=== PATIENT | female | born 1965 | race Caucasian/White ===

== ENCOUNTER 2018-02-07 13:53 | Emergency (ER) | payer OTHER ==
[2018-02-07 14:11] VITALS: BP 130/82; PULSE 88; RESP 20; TEMP 98.4
--- NOTE | 2018-02-07 14:53 | ED ---
Upper Extremity HPI - General Chief Complaint: Extremity Injury, Upper Stated Complaint: shoulder injury-[facility] Time Seen by Provider: 02/07/18 14:43 Source: patient, RN notes reviewed Mode of arrival: ambulatory Limitations: no limitations - History of Present Illness Initial Comments: This is a 52-year-old female who presents to the emergency department with chief complaint of work-related left shoulder injury. 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 She states that her left arm was behind the patient and she was pulling the patient towards her. She states that she felt a pop and sharp, excruciating pain in her left shoulder that shot down her arm. She states that she has limited range of motion due to pain. She denies any other injuries or trauma. Denies any numbness or tingling. Denies recent fevers or chills, chest pain or shortness of breath, abdominal pain, nausea or vomiting. - Related Data Home Medications Medication Instructions Recorded Confirmed No Known Home Medications 02/07/18 02/07/18 Allergies Allergy/AdvReac Type Severity Reaction Status Date / Time NSAIDS (Non-Steroidal AdvReac BLEEDING Verified 02/07/18 14:50 Anti-Inflamma Review of Systems ROS Statement: Those systems with pertinent positive or pertinent negative responses have been documented in the HPI. ROS Other: All systems not noted in ROS Statement are negative. Past Medical History Additional Past Medical History / Comment(s): Von willebrand History of Any Multi-Drug Resistant Organisms: None Reported Past Surgical History: Tonsillectomy Past Psychological History: No Psychological Hx Reported Smoking Status: Never smoker Past Alcohol Use History: None Reported Past Drug Use History: None Reported General Exam - General Exam Comments Initial Comments: General: Awake and alert, well-developed; in no apparent distress. HEENT: Head atraumatic, normocephalic. Pupils are equal, round and reactive to light. Extraocular movements intact. Oropharynx moist without erythema or exudate. Neck: Supple. Normal ROM. Cardiovascular: Regular rate and rhythm. No murmurs, rubs or gallops. Chest symmetrical. Respiratory: Lungs clear to auscultation bilaterally. No wheezes, rales or rhonchi. Normal respiratory effort with no use of accessory muscles. Abdomen: Soft, non-tender, non-distended. No rigidity, rebound or guarding. Normal bowel sounds in all 4 quadrants. Musculoskeletal: Patient refuses to move the left shoulder; limited due to the pain. There is tenderness of the proximal humerus and AC joint. Sensation is intact. Radial pulses are 2+, equal and palpable bilaterally. Skin: [place], warm and dry without rashes or lesions. Neurological: Alert and oriented x3. CN II-XII grossly intact. Speech is fluent and answers are appropriate. No focal neuro deficits. Psychiatric: Normal mood and affect. No overt signs of depression or anxiety noted. Limitations: no limitations Course Vital Signs 02/07/18 14:09 Temperature 98.4 F Pulse Rate 88 Respiratory 20 Rate Blood Pressure 130/82 O2 Sat by Pulse 98 Oximetry Medical Decision Making - Medical Decision Making This is a 52-year-old female who presents to the emergency department with chief complaint of work-related left shoulder injury. Patient refuses to move the left arm for evaluation as she complains of severe pain. I am able to passively move the shoulder with resistance from patient. X-ray of the left shoulder was obtained which revealed no acute abnormalities. Patient is neurovascularly intact. It is recommended that she follow-up with orthopedics for further evaluation and work status is to be determined by them. Patient will be provided with contact information to follow-up with orthopedics. Vitals are stable and she is in no acute distress. Recommend rest, ice, elevation and ibuprofen or Tylenol as needed. Recommended gentle movement of the shoulder to prevent frozen shoulder. Patient will be discharged home at this time. She is in agreement and voices understanding. All questions were answered. - Radiology Data Radiology results: report reviewed X-ray of left shoulder impression: Normal shoulder. As read by Dr. Limon Disposition Clinical Impression: Strain of shoulder Disposition: HOME SELF-CARE Condition: Good Instructions: Rotator Cuff Injury (ED), Shoulder Sprain (ED) Additional Instructions: Please follow-up with orthopedics within 1-2 days for further evaluation. Please rest, ice, take ibuprofen or Tylenol as needed for pain. Please perform gentle motions of the shoulder to prevent frozen shoulder. Please follow up with primary care provider within 1-2 days. Return to emergency department if symptoms should worsen or any concerns arise. Is patient prescribed a controlled substance at d/c from ED?: No Referrals: Leslie Adams DO [Primary Care Provider] - 1-2 days Time of Disposition: 15:14
--- NOTE | 2018-02-07 15:02 | XR ---
EXAMINATION TYPE: XR shoulder complete LT DATE OF EXAM: 02/07/2018 COMPARISON: NONE HISTORY: Pain TECHNIQUE: Shoulder examined in 3 FINDINGS: The humeral head articulates with the glenoid. The acromio-clavicular junction is normal. No acute fractures or dislocations are evident. A follow up study can be performed 7-10 days from acute trauma for continued pain. IMPRESSION: 1. Normal Shoulder
== END 2018-02-07 15:31 | disposition home or self-care (01) ==
LOC: EC 13:53
DX: S46.912A Strain of unspecified muscle, fascia and tendon at shoulder and upper arm level, left arm, initial encounter (principal); Z88.6 Allergy status to analgesic agent; X50.9XXA Other and unspecified overexertion or strenuous movements or postures, initial encounter; Y93.89 Activity, other specified; Y92.69 Other specified industrial and construction area as the place of occurrence of the external cause; Y99.0 Civilian activity done for income or pay
CPT/HCPCS: 99283

== ENCOUNTER → 2018-03-03 | Outpatient (CLI) | payer OTHER ==
--- NOTE | 2018-03-03 12:45 | XR ---
EXAMINATION TYPE: XR shoulder complete LT DATE OF EXAM: 03/03/2018 CLINICAL HISTORY: pain COMPARISON: NONE TECHNIQUE: Three views of the left shoulder are obtained. FINDINGS: There is no acute fracture/dislocation evident. The acromioclavicular and glenohumeral rc int spaces appear within normal limits. The visualized ribs are intact and unremarkable. IMPRESSION: 1. There is no acute fracture or dislocation. ICD 10 NO FRACTURE, INITIAL EVALUATION
== END | disposition home or self-care (01) ==
LOC: RADXRMAIN 12:25
PROVIDERS: ATTEND Emergency Medicine
DX: S43.402D Unspecified sprain of left shoulder joint, subsequent encounter (principal)

== ENCOUNTER → 2018-03-08 | Outpatient (CLI) | payer OTHER ==
--- NOTE | 2018-03-08 13:16 | MR ---
EXAMINATION TYPE: MR shoulder LT wo con DATE OF EXAM: 03/08/2018 COMPARISON: Left shoulder radiographs dated 03/03/2018 HISTORY: Left shoulder pain TECHNIQUE: Multiplanar, multisequence imaging of the left shoulder is performed without contrast. FINDINGS: Rotator Cuff: There is a partial thickness small articular surface distal fiber tear of the supraspin atus. There is bursal surface fiber fraying and mild supraspinatus tendinosis as there is alteration of the intrinsic signal of the supraspinatus. There is bursal surface fraying of the fibers of the infraspinatus and mild tendinosis with increased signal of the distal tendon. The teres minor and subscapularis are normal muscular volume and signal. Acromioclavicular Joint: There is mild acromio clavicular arthropathy with capsular hypertrophy and s mall marginal osteophytes. No impingement on the supraspinatus is seen. Glenohumeral Joint: Multiple subchondral cysts are seen of the humeral head. Only mild joint space na rrowing of the glenohumeral joint is appreciated. Labrum: There is a small para labral cyst of the anterior superior labrum measuring 2 mm. There appea rs to be a nondisplaced anterior superior labral tear and anterior inferior labral tear. Labral degen eration is seen of the anterior inferior labrum. Biceps Tendon: The long head of biceps is in normal location within bicipital groove. There is a spli t tear of the intra-articular portion of the biceps tendon proximal to its attachment on the biceps a nchor. Extra-articular portion appears unremarkable. Bone marrow signal: No focal abnormal marrow signal is appreciated. IMPRESSION: 1. Split tear of the long head of the biceps tendon in its intra-articular portion without detachment . 2. Anterior superior and anterior inferior labral tears that appear nondisplaced with an associated 2 mm para labral cyst. Anterior inferior labral degeneration is also noted. 3. Subcentimeter partial-thickness articular surface tear of the distal fibers of the supraspinatus. 4. Mild glenohumeral arthropathy and acromio clavicular arthropathy. 5. Mild supraspinatus and infraspinatus tendinopathy.
== END | disposition home or self-care (01) ==
LOC: RADMRIMAIN 08:35
PROVIDERS: ATTEND Emergency Medicine
DX: S46.112A Strain of muscle, fascia and tendon of long head of biceps, left arm, initial encounter (principal); S46.012A Strain of muscle(s) and tendon(s) of the rotator cuff of left shoulder, initial encounter; S43.432A Superior glenoid labrum lesion of left shoulder, initial encounter; M24.112 Other articular cartilage disorders, left shoulder; M12.812 Other specific arthropathies, not elsewhere classified, left shoulder

== ENCOUNTER 2018-03-24 09:36 | Day surgery (SDC) | payer OTHER ==
[2018-03-17 12:01] VITALS: BMI 23.6
--- NOTE | 2018-03-23 19:42 | HP ---
HISTORY AND PHYSICAL CHIEF COMPLAINT: Left shoulder pain. HISTORY OF PRESENT ILLNESS: The patient is a 53-year-old right-hand dominant female who presents with left shoulder pain after an injury at work on 02/07/2018. 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 She has had pain with overhead use and at night ever since. She notes increasing stiffness. She has been to the emergency room and [facility] for this. She has been taking Tylenol and oxycodone for this. She did give this a period of rest without much relief. She denies previous problems with her left shoulder. PAST MEDICAL HISTORY: Otherwise negative. PAST SURGICAL HISTORY: Negative. CURRENT MEDICATIONS: [place] and oxycodone. ALLERGIES: She denies drug allergies. FAMILY HISTORY: Significant for cancer. SOCIAL HISTORY: Negative for current tobacco or alcohol use. REVIEW OF SYSTEMS: Sixteen point review of systems otherwise reviewed and is noncontributory. PHYSICAL EXAMINATION: On examination, the patient is approximately 5 foot 2 inches, 128 pounds of mesomorphic habitus. HEENT exam is nonfocal. Neck is supple. On examination of her left shoulder, she is tender about the anterior subacromial space and over the acromioclavicular joint. She has moderate subacromial crepitus. Active range of motion forward elevation 95 degrees, external rotation with the arm side 30 degrees, internal rotation to L4. Passively I am able to forward elevate her to 95 degrees. Motor strength is 4+ over 5 for abduction and external rotation with the arm at the side. Impingement test, Neer test, and Speed tests are positive. Her distal neurovascular exam otherwise appears intact in the left upper extremity. X-rays of the left shoulder obtained in the office show a type 2 acromion with maintained humeral head to acromial distance. MRI report left shoulder 03/08/2018 shows a possible partial-thickness tear of the supraspinatus along with a split tear involving the intra-articular portion of the long head of the biceps. IMPRESSION: 1. Left shoulder impingement with possible partial-thickness rotator cuff tear and possible partial tear of the long head of the biceps. 2. Left shoulder adhesive capsulitis. RECOMMENDATIONS: I talked to the patient at length regarding her condition and treatment options. At this point, she is having significant pain and limitation after this acute injury. After thorough discussion, she opts to proceed with surgery. We will plan to proceed with arthroscopic subacromial decompression and possible rotator cuff debridement versus repair. We will also consider biceps tenotomy. We will perform manipulation under anesthesia if necessary as well. Risks and benefits were discussed at length in layman's terms. We will likely perform that as an outpatient procedure. MMGABEL / SEEN: [id number] /
[~2018-03-24 09:36] MED LIST: DEXAMETHASONE SOD PHOSPHATE 10 MG/ML 1 ML VIAL IV ONE; HYDROmorphone 1 MG/ML 1 ML SYRINGE IVP PRN; LACTATED RINGERS 1,000 ML IV SCH; MIDAZOLAM 2 MG/2 ML VIAL IV PRN; ONDANSETRON 4 MG/2 ML VIAL IVP ONE; SCOPOLAMINE 1.5MG/72HR PATCH TRANSDERM ONE; ceFAZolin 1,000 MG in DEXTROSE/WATER 1 50ML.BAG IVPB ONE
[2018-03-24] MEDS ORDERED: LACTATED RINGERS 1,000 ML IV ONE (10:15)
[2018-03-24] MEDS ORDERED: LIDOCAINE 1% 20 ML VIAL (10MG/ML) FOR IV START INTRADERMA ONE (10:15)
[2018-03-24] MEDS ORDERED: PROPOFOL 10 MG/ML 20 ML VIAL IV ONE (11:08)
[2018-03-24] MEDS ORDERED: LIDOCAINE 1% INJ 10MG/ML (20 ML MDV) ONE (11:08)
[2018-03-24] MEDS ORDERED: ROPIVACAINE 5 MG/ML 30 ML VIAL ONE (11:08)
[2018-03-24] MEDS ORDERED: PHENYLEPHRINE-0.9% NACL SYG 1 MG/10 ML SYRINGE ONE (11:08)
[2018-03-24] MEDS ORDERED: MIDAZOLAM 2 MG/2 ML VIAL ONE (11:08)
[2018-03-24] MEDS ORDERED: SUCCINYLCHOLINE CHLORIDE 100 MG/5 ML SYR IV ONE (11:08)
[2018-03-24] MEDS ORDERED: EPINEPHrine (PF) 1 ML in SODIUM CHLORIDE 0.9% IRRIGATIO 3,000 ML IRRIGATION ONE ×8 (11:55)
--- NOTE | 2018-03-24 12:33 | P.OP ---
Date of Procedure: 03/24/18 Preoperative Diagnosis: Left rotator cuff strain/adhesive capsulitis/high-grade partial-thickness tear long head of the biceps Postoperative Diagnosis: Same in addition to a partial thickness bursal surface tear supraspinatus Procedure(s) Performed: Left shoulder arthroscopic subacromial decompression/biceps tenotomy/rotator cuff debridement/manipulation under anesthesia Anesthesia: marion MACARIO Surgeon: Mikey Thomas Senior Bi Architect #1: Moreno Bullock Estimated Blood Loss (ml): 10 Pathology: none sent Condition: stable Disposition: PACU Indications for Procedure: The patient's a 53-year-old female who recently injured her left shoulder who presented with progressive pain and stiffness. A discussion of the risks and benefits of operative intervention versus conservative measures was made with the patient. She opted to proceed with surgery. Operative risks to include infection, neurovascular injury, development of blood clots, possible incomplete resolution of symptoms, possible recurrence of stiffness and possible need for subsequent procedures was discussed. Informed consent was obtained. Operative Findings: As below Description of Procedure: The patient was brought to the operating room, and after induction of general anesthesia was placed in a beachchair position. An interscalene block was previously placed by anesthesia for postoperative analgesia. I examined the left shoulder. There was significant adhesions therefore a manipulation was performed first with the arm at side obtaining full external rotation. I then manipulated her and forward elevation obtaining full forward elevation. Bony prominences were appropriately padded. The left upper extending was prepped and draped in normal fashion. The bony outlines the acromion, distal clavicle, and coracoid process were outlined with a skin marker. The glenohumeral joint was inflated with 50 mL of saline utilizing a spinal needle from posterior approach. A posterior portal was made through a 5 mm skin incision 1 cm medial and inferior to the posterior lateral border the acromion. A blunt trocar was used to easily into the joint. Diagnostic arthroscopy was performed. An anterior portal was made just lateral to the coracoid process entering the joint above the subscapularis tendon. There was significant synovitis of the rotator interval that was debrided with a motorized shaver. The subscapularis appeared intact. The anterior labrum was intact. There was significant erythema along with tearing of the articular portion of the long head of the biceps. It was elected to proceed with tenotomy at this point. This was released from the superior labrum with electrocautery and lateral retract the bicipital groove. On inspection the rotator cuff, it was intact on the articular surface. The posterior labrum was intact. The inferior recess was inspected. No significant chondral injury was noted involving humeral head or glenoid. The arthroscope was placed into the subacromial space. A lateral portal was made through a 5 mm skin incision 2 cm inferior to the anterolateral border the acromion. The soft tissue on the undersurface the acromion was debrided with a motorized shaver and electrocautery clearly defining the anterior medial and lateral borders as well as the distal clavicle. An anterior inferior acromioplasty was performed with a motorized ethan starting anterolateral, then extending this posteriorly, then extending this medially. I was able to convert to a flat acromion. This is verified from the posterior and lateral viewing portals. The coracoacromial ligament was detached from the anterior acromion with electrocautery. On inspection of the rotator cuff, a partial thickness tear involving the anterior aspect the supraspinatus was noted. This involved approximately 2 mm of the tendon thickness. This was debrided back to stable base with a motorized shaver. The remaining rotator cuff appeared stable and intact. The bursal tissue was debrided with a motorized shaver. The arthroscope was then removed. The portals were closed with simple 3-0 nylon sutures. A sterile dressing was applied in addition to a sling. The patient was awoken from general anesthesia and transferred to recovery room in good condition. Blood loss was estimated at 10 mL. No complications were incurred. Sponge and needle counts were correct at the end the case. Alejo SÁNCHEZ assisted during the major components of this case.
[2018-03-24] MEDS ORDERED: ONDANSETRON 4 MG/2 ML VIAL IVP ONE (12:55)
[2018-03-24 12:58] VITALS: TEMP 98.8
[2018-03-24] MEDS ORDERED: KETOROLAC 30 MG/ML 1 ML VIAL IVP ONE (13:09)
[2018-03-24 13:33] VITALS: RESP 16
--- NOTE | 2018-03-24 14:32 | P.ONQ ---
Anesthesiology Proc Note - PNB - Peripheral Nerve Block Performed Left Interscalene Single Time Out Performed: Yes (1023) Procedure Start Time: Procedure Stop Time: Indication: Acute Post-Operative Pain, Dx/Pain Location (Left Shoulder Pain), Requested by physician Sedation Type: Sedate with meaningful contact maintained Preparation: Sterile Prep Position: Supine Needle Types: On-Q Needle Size: 50mm (2") Needle Gauge: 21 Technique: Ultrasound Injectate: 0.5% Ropivacaine (see comment for volume) (20) Blood Aspirated: No Pain Paresthesia on Injection Noted: No Resistance on Injection: Normal Events: Uneventful and Well Tolerated
[2018-03-24 14:38] VITALS: BP 114/79; PULSE 101
== END 2018-03-24 15:20 | disposition home or self-care (01) ==
LOC: OR 09:36
PROVIDERS: ATTEND Orthopaedic Surgery
DX: M75.02 Adhesive capsulitis of left shoulder (principal); S46.112A Strain of muscle, fascia and tendon of long head of biceps, left arm, initial encounter; X50.0XXA Overexertion from strenuous movement or load, initial encounter; M19.90 Unspecified osteoarthritis, unspecified site; M65.812 Other synovitis and tenosynovitis, left shoulder; Z79.891 Long term (current) use of opiate analgesic; Z79.899 Other long term (current) drug therapy
CPT/HCPCS: 64415; 81025; 29823; J2250; J1100; J2405; J0171; J2001; J1885; J1170; J0690; J2795; J2370; J0330; J2704

== ENCOUNTER → 2018-05-26 | Day surgery (SDC) | payer MEDICAID ==
[2018-05-23 13:52] VITALS: BMI 23.8
--- NOTE | 2018-05-24 13:59 | HP ---
HISTORY AND PHYSICAL CHIEF COMPLAINT: Right shoulder pain. 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 She did fall approximately 3-4 years ago. She notes anterior and lateral pain, worse with attempted overhead use and at night. She has been taking [place] for pain relief. She notes the pain severely restricts her function and activities. PAST MEDICAL HISTORY: Negative. PAST SURGICAL HISTORY: Significant for left shoulder arthroscopy. CURRENT MEDICATIONS: Oxycodone. She denies drug allergies. FAMILY HISTORY: Significant for cancer. SOCIAL HISTORY: Negative for current tobacco or alcohol use. REVIEW OF SYSTEMS: A 16-point review of systems otherwise reviewed and is noncontributory. PHYSICAL EXAMINATION: On examination, the patient is approximately 5 foot 2, 128 pounds of mesomorphic habitus. HEENT exam is nonfocal. Neck is supple. On examination of her right shoulder, she is tender about at the anterior subacromial space. There is mild subacromial crepitus. Active range of motion, forward elevation 90 degrees, external rotation with arm at side 25 degrees, internal rotation to the buttock. Passively, I am able to forward elevate her to 90 degrees. Motor strength is 5/5 for abduction and external rotation. Impingement test, Neer test, and Speed tests are positive. Her distal neurovascular appears otherwise intact in the right upper extremity. MRI report 04/21/2018 of the right shoulder shows a partial-thickness tear of the supraspinatus along with edema in the axillary recess. IMPRESSION: 1. Right shoulder adhesive capsulitis. 2. Right shoulder impingement with partial thickness rotator cuff tear. RECOMMENDATIONS: I talked to the patient at length regarding her condition and treatment options. At this point, she is quite symptomatic and opts to proceed with surgery. Will plan to proceed with arthroscopic evaluation with probable subacromial decompression, possible rotator cuff debridement, in addition to manipulation under anesthesia. We will likely perform that as an outpatient procedure. Risks and benefits were discussed at length in layman's terms. MMODL / IJN: [id number] /
[~2018-05-26] MED LIST changes: +EPINEPHrine (PF) 1 ML in SODIUM CHLORIDE 0.9% IRRIGATIO 3,000 ML IRRIGATION ONE; +HYDROmorphone 0.5 MG/0.5 ML SYRINGE IVP PRN; -HYDROmorphone 1 MG/ML 1 ML SYRINGE IVP PRN; +LIDOCAINE 1% INJ 10MG/ML (20 ML MDV) ONE; +MIDAZOLAM (PF) 2 MG/2 ML VIAL IV PRN; -MIDAZOLAM 2 MG/2 ML VIAL IV PRN; +MIDAZOLAM 2 MG/2 ML VIAL ONE; +PHENYLEPHRINE-0.9% NACL SYG 1 MG/10 ML SYRINGE ONE; +PROPOFOL 10 MG/ML 20 ML VIAL IV ONE; +ROCURONIUM BROMIDE 10 MG/ML 10 ML VIAL IV ONE; +ROPIVACAINE 5 MG/ML 30 ML VIAL ONE; +SUCCINYLCHOLINE CHLORIDE 100 MG/5 ML SYR IV ONE; +fentaNYL (PF) 50 MCG/ML 2 ML AMP IVP ONE; +fentaNYL (PF) 50 MCG/ML 2 ML AMP ONE
[2018-05-26 07:41] VITALS: RESP 16
--- NOTE | 2018-05-26 09:12 | P.ONQ ---
Anesthesiology Proc Note - PNB - Peripheral Nerve Block Performed Right Interscalene Single Time Out Performed: Yes Procedure Start Time: 07:55 Procedure Stop Time: 08:17 Indication: Requested by physician Specifically requested for management of pain by : Mikey Thomas Sedation Type: Sedate with meaningful contact maintained Preparation: Sterile Prep Position: Supine Needle Types: Other (see comment) ([place]) Needle Size: 50mm (2") Needle Gauge: 20 Technique: Ultrasound Injectate: 0.5% Ropivacaine (see comment for volume) (20 ml) Blood Aspirated: No Pain Paresthesia on Injection Noted: No Resistance on Injection: Normal Events: Uneventful and Well Tolerated
--- NOTE | 2018-05-26 10:27 | P.OP ---
Date of Procedure: 05/26/18 Preoperative Diagnosis: Right shoulder impingement/partial thickness rotator cuff tear/adhesive capsulitis Postoperative Diagnosis: Same Procedure(s) Performed: Right shoulder arthroscopic subacromial decompression/rotator cuff debridement/ manipulation under anesthesia Anesthesia: marion MACARIO Surgeon: Mikey Thomas Wind Instrument Repairer #1: Moreno Bullock Estimated Blood Loss (ml): 10 Pathology: none sent Condition: stable Disposition: PACU Indications for Procedure: The patient's a 53-year-old female who presents with progressive right shoulder pain and stiffness despite conservative measures. Clinically and by MRI she is noted of evidence of impingement along with significant adhesive capsulitis. A discussion of the risks and benefits of operative intervention versus continued conservative measures was made with patient. She opted to proceed with surgery. Operative risks to include infection, neurovascular injury, development of blood clots, possible recurrence of stiffness, possible incomplete resolution of symptoms and need for subsequent procedures was discussed. Informed consent was obtained. Operative Findings: As below Description of Procedure: The patient was brought to the operating room, and after induction of general anesthesia was placed in a beachchair position. Bony prominences were appropriately padded. I examined the right shoulder. There was significant block to passive range of motion. Gentle manipulation was then performed first with the arm at the side obtaining 80 of external rotation. Moderate adhesions were encountered. I then obtained full forward elevation of 170. Again there is moderate adhesions encountered. The right upper extremity was then prepped and draped in normal fashion. The bony outlines the acromion, distal clavicle, and coracoid process were outlined with a skin marker. The glenohumeral joint was inflated with 50 mL of saline utilizing a spinal needle from a posterior approach. A posterior portal was made through a 5 mm skin incision 1 cm medial and inferior to the posterior lateral border the acromion. A blunt trocar was used to easily into the joint. Diagnostic arthroscopy was performed. An anterior portals made just lateral to the coracoid process entering the joint above the subscapularis tendon. There was significant synovitis of the rotator interval. The subscapularis appeared to be intact. The biceps and its anchor were intact. On inspection the rotator cuff, a partial thickness tear involving the supraspinatus was noted involving 2-3 mm of the thickness. This was debrided back to stable base with a motorized shaver. The posterior portion the cuff appeared intact. No significant chondral injury involving the glenoid or humeral head were noted. The anterior labrum was intact. The posterior labrum was intact. The inferior recess was inspected. The arthroscope was then placed into the subacromial space. A lateral portal was made through a 5 mm skin incision 2 cm inferior to the anterolateral border the acromion. The soft tissue on the undersurface the acromion was debrided with motorized shaver and electrocautery clearly defining the anterior medial and lateral borders as well as the distal clavicle. The coracoacromial ligament was detached from the anterior acromion with electrocautery. An anterior inferior acromioplasty was performed with a motorized ethan starting anterolateral, then extending this posteriorly, then extending this medially. I converted to a flat acromion verified this on the posterior and lateral viewing portals. On inspection the rotator cuff, there was bursal thickening however no eulalio bursal surface tear. The arthroscope was then removed. The portals were closed with simple 3-0 nylon suture. A sterile dressing was applied in addition to a sling. The patient was awoken from general anesthesia and transferred to recovery room in good condition. Blood loss was estimated 10 mL. No competitions were incurred. Sponge and needle counts were correct at the end of the case. Alejo SÁNCHEZ assistance during the major composes case to include positioning and decompression.
[2018-05-26 10:41] VITALS: TEMP 97.5
[2018-05-26 11:45] VITALS: BP 117/79; PULSE 72
== END | disposition home or self-care (01) ==
LOC: OR 07:14
PROVIDERS: ATTEND Orthopaedic Surgery
DX: M75.41 Impingement syndrome of right shoulder (principal); M75.111 Incomplete rotator cuff tear or rupture of right shoulder, not specified as traumatic; M75.01 Adhesive capsulitis of right shoulder; D68.0 Von Willebrand disease; K21.9 Gastro-esophageal reflux disease without esophagitis; Z79.891 Long term (current) use of opiate analgesic
CPT/HCPCS: 64415; 81025; 29822; 29826; J2250 ×2; J1100; J2405; J0171; J2001; J3010; J0690; J2795; J2370; J0330; J2704

== ENCOUNTER → 2019-10-16 | Outpatient (CLI) | payer MEDICAID ==
--- NOTE | 2019-10-16 12:21 | US ---
EXAMINATION TYPE: US kidneys/renal and bladder DATE OF EXAM: 10/16/2019 COMPARISON: NONE CLINICAL HISTORY: N20.0 Kidney stones. Right flank pain x 3 days, hematuria EXAM MEASUREMENTS: Right Kidney: 11.8 x 4.6 x 4.5 cm Left Kidney: 11.4 x 5.6 x 5.0 cm Right Kidney: no hydronephrosis or masses seen Left Kidney: no hydronephrosis, 0.5cm echogenic shadowing stone lateral mid pole Bladder: wnl Bilateral Jets seen: right jet not seen, left jet seen There is no evidence for hydronephrosis at this point in time. Left kidney shows nonshadowing small 5 mm hyperechoic focus mid to lower pole level could reflect nonobstructing calculus. No masses are i dentified in images saved. The urinary bladder is satisfactorily distended. Bilateral ureteral jets are not seen. IMPRESSION: No hydronephrosis is seen bilaterally. Possible small nonobstructing left renal calculus. If symptoms of hematuria persists further investigation with CT urogram would be advised.
== END | disposition home or self-care (01) ==
LOC: RADUSWWP 10:23
PROVIDERS: ATTEND Family Medicine
DX: N20.0 Calculus of kidney (principal)
CPT/HCPCS: 76770